=== PATIENT | female | born 1980 | race Caucasian/White ===

== ENCOUNTER 2018-12-29 19:25 | Inpatient (IN) | payer OTHER ==
[2018-12-29] MEDS: ELECTROLYTE-148 SOLN 1,000 ML IV SCH (20:05)
[2018-12-29 20:34] LABS: BASO % 0.2 % (0-2.0); HEMATOCRIT 32.3 % (32.4-45.2); LYMPH % 19.2 % (8-40); MCH 29.5 pg (25.7-33.7); MCHC 33.9 g/dl (32.0-36.0); MEAN CELL VOLUME 87.2 fl (80-96); MEAN PLT VOLUME 7.4 fl (7.5-11.1); MONO % 6.7 % (3.8-10.2); NEUT % 72.9 % (42.8-82.8); PLATELET COUNT 261 K/MM3 (134-434); RBC 3.71 M/mm3 (3.60-5.2); WHITE BLOOD COUNT 11.5 K/mm3 (4.0-10.0)
--- NOTE | 2018-12-29 20:38 | HP ---
Past Medical History - Primary Care Physician PCP:: Alejandra Meza - Admission Chief Complaint: Rupture of membranes. Labor History of Present Illness: 37 yo EDC 12/29/18 EGA 40 week who SROM and labor +AFM no vaginal bleeding Plan Admit to [facility] History Source: Patient - Past Surgical History Hx Myomectomy: No Hx Transabdominal Cerclage: No - Smoking History Smoking history: Never smoked - Alcohol/Substance Use Hx Alcohol Use: No History of Substance Use: reports: None - Social History History of Recent Travel: No Home Medications - Allergies Allergies/Adverse Reactions: Allergies Allergy/AdvReac Type Severity Reaction Status Date / Time No Known Allergies Allergy Verified 12/26/18 18:04 - Home Medications Home Medications: Ambulatory Orders Vitamins (Sjr) - 1 tab PO DAILY 12/24/18 Physical Exam - Maternity Constitutional: Yes: Well Nourished, No Distress Lungs: Clear to auscultation - Abdominal Exam/OB Fundal Height: 40 Number of Fetuses: Single Presentation: Vertex Contractions: Yes Regularity: Regular Category: I - Vaginal Exam/OB Dilatation (cm): 2 cm Amniotic Fluid: Yes: Clear - Physical Exam Musculoskeletal: Yes: WNL Extremities: Yes: WNL Edema: No Hemorrhage Risk Assessment - Risk Factors Risk Score: 0 Risk Level: Low Risk Problem List - Problems (1) Labor established Code(s): [id number] - (2) Rupture of membranes with clear amniotic fluid Code(s): IZH0004 - Assessment/Plan Rupture of membranes Labor IUP @ 40 week Plan admit to
[2018-12-29] MEDS ORDERED: BUTORPHANOL TARTRATE 1 MG/ML VIAL IVPB ONE (20:45)
[2018-12-29] MEDS ORDERED: PROMETHAZINE HCL 25 MG/1 ML VIAL IVPUSH ONE (20:45)
[2018-12-29 20:48] VITALS: BMI 26.9
[2018-12-29 20:55] LABS: ANION GAP 9 MMOL/L (8-16); BLOOD UREA NITROGEN 8 mg/dL (7-18); CALCIUM 9.1 mg/dL (8.5-10.1); CHLORIDE 105 mmol/L (98-107); CO2 23 mmol/L (21-32); CREATININE 0.7 mg/dL (0.55-1.3); GLUCOSE,RANDOM 85 mg/dL (74-106); POTASSIUM 3.7 mmol/L (3.5-5.1); SODIUM 136 mmol/L (136-145)
[2018-12-29] MEDS ORDERED: PROMETHAZINE HCL 25 MG/1 ML VIAL ONE (20:55)
[2018-12-29] MEDS ORDERED: BUTORPHANOL TARTRATE 1 MG/ML VIAL ONE ×2 (20:55)
[2018-12-29 21:00] LABS: INR 0.91 (0.83-1.09); PROTHROMBIN TIME (PATIENT) 10.7 SEC (9.7-13.0)
[2018-12-29 21:03] LABS: ACTIVATED PTT 25.2 SECONDS (25.2-36.5)
[2018-12-29] MEDS ORDERED: LIDOCAINE HCL 1% PRESERVATIVE FREE - 30ML VIAL ONE (21:58)
[2018-12-29] MEDS ORDERED: OXYTOCIN 20 UNITS in 0.9% NS 20 UNIT/1,000 ML INFUS.BAG IV ONE (21:58)
[2018-12-30] MEDS: OXYTOCIN 20 UNITS in 0.9% NS 20 UNIT/1,000 ML INFUS.BAG IV SCH (00:45)
[2018-12-30] MEDS ORDERED: BISACODYL 10 MG SUPP.RECT RC PRN (01:00)
[2018-12-30] MEDS ORDERED: BENZOCAINE 20% 57 GM BOTTLE TP PRN (01:00)
[2018-12-30] MEDS ORDERED: WITCH HAZEL 50% (TUCKS) 40 PAD/JAR PAD TP PRN (01:00)
[2018-12-30] MEDS ORDERED: BENZOCAINE 28 GM HEMORRHOIDAL OINTMENT TP PRN (01:00)
[2018-12-30] MEDS ORDERED: METHYLERGONOVINE MALEATE 0.2 MG/1 ML AMP IM PRN (01:00)
--- NOTE | 2018-12-30 01:00 | PN ---
Delivery - Delivery Vaginal Delivery: Spontaneous Type of Anesthesia: Local Episiotomy/Laceration: Midline (500) EBL (cc): 500 (Nuchal Cord x2 ) Delivery, Single - Stages of Labor Placenta: Yes: Spontaneous - Condition of Infant Position: OA - [place] Feeding Plan Initial Plan: Exclusive throughout hospitalization
[2018-12-30] MEDS ORDERED: IBUPROFEN 600 MG TABLET (FP) PO ONE (01:55)
[2018-12-30] MEDS ORDERED: OXYTOCIN 20 UNITS in 0.9% NS 20 UNIT/1,000 ML INFUS.BAG IV ONE ×2 (01:55→03:27)
[2018-12-30] MEDS ORDERED: ACETAMINOPHEN 325 MG TABLET (FP) ONE (01:55)
[2018-12-30] MEDS: ACETAMINOPHEN 325 MG TABLET (FP) PO PRN ×6 (02:05→23:17)
[2018-12-30] MEDS: IBUPROFEN 600 MG TABLET (FP) PO PRN ×4 (02:05→23:18)
--- NOTE | 2018-12-30 03:05 | RAPID ---
Physical Examination Vital Signs: Vital Signs Temperature 98.1 F 12/29/18 22:00 Pulse Rate 95 H 12/29/18 22:00 Respiratory Rate 20 12/29/18 22:00 Blood Pressure 131/76 12/29/18 22:00 O2 Sat by Pulse Oximetry (%) Labs: CBC, BMP 12/29/18 20:00 12/29/18 20:00 Rapid Response - Rapid Response Assessment: Rapid response called at labor and delivery. Response team arrived. As per nursing, patient just gave about an hour ago, with estimated blood loss of 300cc. Patient was trying to go to the bathroom, but nurse noted patient was leaning on the sink. Patient said she was feeling weak, and nurse caught her and slowly laid her down to the floor. When team arrived, patient was being lifted from the floor to the bed. Patient reports feeling tired and weak. Blood noted on the sheets in the bathroom and in the bed. VS: BP 113/59, HR 96, O2 sat 96% General: awake, alert, oriented, weak-looking Lungs: clear to auscultation Heart: tachycardic, no murmurs Syncope likely 2/2 hypovolemia from acute blood loss Dr. Fried came and examined patient. BGM 131 IV fluid bolus EKG - sinus tachycardia, NSR, no ST-T wave changes CBC BMP Labs reviewed. Primary team notified.
[2018-12-30 03:33] LABS: BASO % 0.1 % (0-2.0); HEMATOCRIT 23.8 % (32.4-45.2); HEMOGLOBIN 7.9 GM/dL (10.7-15.3); LYMPH % 5.2 % (8-40); MEAN CELL VOLUME 87.9 fl (80-96); MEAN PLT VOLUME 7.2 fl (7.5-11.1); MONO % 5.5 % (3.8-10.2); NEUT % 89.2 % (42.8-82.8); PLATELET COUNT 258 K/MM3 (134-434); RBC 2.71 M/mm3 (3.60-5.2); RDW 14.9 % (11.6-15.6); WHITE BLOOD COUNT 29.4 K/mm3 (4.0-10.0)
[2018-12-30] MEDS ORDERED: SODIUM CHLORIDE 1,000 ML IV STA (03:34)
[2018-12-30 04:14] LABS: CREATININE 0.7 mg/dL (0.55-1.3)
[2018-12-30 04:20] LABS: PLATELET ESTIMATE ADEQUATE
[2018-12-30 04:30] LABS: ALBUMIN 2.1 g/dl (3.4-5.0); ALK PHOS 171 U/L (45-117); ANION GAP 10 MMOL/L (8-16); BILIRUBIN,TOTAL 0.4 mg/dL (0.2-1); BLOOD UREA NITROGEN 11 mg/dL (7-18); CALCIUM 7.4 mg/dL (8.5-10.1); CHLORIDE 107 mmol/L (98-107); CO2 19 mmol/L (21-32); GLUCOSE,RANDOM 135 mg/dL (74-106); POTASSIUM 3.8 mmol/L (3.5-5.1); SGOT/AST 20 U/L (15-37); SGPT/ALT 9 U/L (13-61); SODIUM 137 mmol/L (136-145); TOT PROT 4.7 g/dl (6.4-8.2)
[2018-12-30] MEDS ORDERED: TUBERCULIN PPD 5 TU/0.1ML SYRINGE (IN PATIENT USE ONLY) ID ONE (06:00)
[2018-12-30] MEDS: PRENATAL VITAMINS W/ FOLIC ACID TABLET (FP) PO SCH (09:14)
--- NOTE | 2018-12-30 09:14 | PN ---
Post Progress Note - Subjective Subjective: Pt doing better. Had issue of syncope overnight, rapid response called. Feeling better. Ate breakfast. OOB to bathroom. +Void. VB much improved. Type of Delivery: Vital Signs: Vital Signs Temperature 98.6 F 12/30/18 07:40 Pulse Rate 108 H 12/30/18 07:40 Respiratory Rate 20 12/30/18 07:40 Blood Pressure 125/80 12/30/18 07:40 O2 Sat by Pulse Oximetry (%) 100 12/30/18 04:30 Uterus: Yes: Fundus Firm Abdomen/GI: Yes: Abdomen soft Lochia: Yes: Rubra Extremities: Yes: Edema (trace LE edema b/l) Perineum: Yes: Laceration Activity: Ambulating - Labs Labs: CBC WBC 29.4 K/mm3 (4.0-10.0) H 12/30/18 03:07 RBC 2.71 M/mm3 (3.60-5.2) L 12/30/18 03:07 Hgb 7.9 GM/dL (10.7-15.3) L 12/30/18 03:07 Hct 23.8 % (32.4-45.2) L D 12/30/18 03:07 MCV 87.9 fl (80-96) 12/30/18 03:07 MCH 29.0 pg (25.7-33.7) 12/30/18 03:07 MCHC 33.0 g/dl (32.0-36.0) 12/30/18 03:07 RDW 14.9 % (11.6-15.6) 12/30/18 03:07 Plt Count 258 K/MM3 (134-434) 12/30/18 03:07 MPV 7.2 fl (7.5-11.1) L 12/30/18 03:07 Absolute Neuts (auto) 26.3 K/mm3 (1.5-8.0) H 12/30/18 03:07 Total Counted 100 12/30/18 03:07 Neutrophils % 89.2 % (42.8-82.8) H D 12/30/18 03:07 Neutrophils % (Manual) 88.0 % (42.8-82.8) H 12/30/18 03:07 Band Neutrophils % 3.0 % (0-10) 12/30/18 03:07 Lymphocytes % 5.2 % (8-40) L D 12/30/18 03:07 Lymphocytes % (Manual) 6.0 % (8-40) L 12/30/18 03:07 Monocytes % 5.5 % (3.8-10.2) 12/30/18 03:07 Monocytes % (Manual) 3 % (3.8-10.2) L 12/30/18 03:07 Eosinophils % 0.0 % (0-4.5) D 12/30/18 03:07 Basophils % 0.1 % (0-2.0) 12/30/18 03:07 Nucleated RBC % 0 % (0-0) 12/30/18 03:07 Platelet Estimate Adequate 12/30/18 03:07 Platelet Comment No clumping noted 12/30/18 03:07 Platelet Comment No clotting detected 12/30/18 03:07 Problem List - Problems (1) (vaginal after ) Code(s): O34.219 - MATERNAL CARE FOR UNSP TYPE SCAR FROM PREVIOUS DEL (2) hemorrhage Code(s): O72.1 - OTHER IMMEDIATE HEMORRHAGE (3) Leukocytosis Code(s): D72.829 - ELEVATED WHITE BLOOD CELL COUNT, UNSPECIFIED Assessment/Plan regular diet repeat CBC this afternoon due to leukocytosis and PPH ambulation with assistance monitor VB
--- NOTE | 2018-12-30 10:18 | EKG ---
Test Reason : Blood Pressure : / mmHG Vent. Rate : 104 BPM Atrial Rate : 104 BPM P-R Int : 140 ms QRS Dur : 086 ms QT Int : 344 ms P-R-T Axes : 035 042 034 degrees QTc Int : 452 ms SINUS TACHYCARDIA NO PREVIOUS ECGS AVAILABLE Confirmed by MICHAEL PETERSON MD ([id number]) on 12/30/2018 10:17:32 AM Referred By: Confirmed By:MICHAEL PETERSON MD
[2018-12-30 17:32] LABS: EOS % 0.1 % (0-4.5); LYMPH % 11.9 % (8-40); MCHC 32.8 g/dl (32.0-36.0); MEAN CELL VOLUME 88.5 fl (80-96); MEAN PLT VOLUME 7.4 fl (7.5-11.1); MONO % 6.4 % (3.8-10.2); NEUT % 81.6 % (42.8-82.8); PLATELET COUNT 204 K/MM3 (134-434); RBC 1.92 M/mm3 (3.60-5.2); RDW 15.3 % (11.6-15.6); WHITE BLOOD COUNT 17.6 K/mm3 (4.0-10.0)
[2018-12-30 17:43] LABS: HEMOGLOBIN 5.6 GM/dL (10.7-15.3)
--- NOTE | 2018-12-30 17:51 | PN ---
Progress Note (short form) - Note Progress Note: Called due to HBG of 5 will transfuse 2 pack units rbc order sent consent from patient obtained Problem List - Problems (1) Rupture of membranes with clear amniotic fluid Code(s): BZW2132 - (2) Anemia complicating puerperium Code(s): O99.03 - ANEMIA COMPLICATING THE PUERPERIUM
[2018-12-30] MEDS: ELECTROLYTE-148 SOLN 1,000 ML IV SCH (22:41)
[2018-12-31] MEDS: ACETAMINOPHEN 325 MG TABLET (FP) PO PRN ×4 (05:16→18:55)
[2018-12-31] MEDS: IBUPROFEN 600 MG TABLET (FP) PO PRN ×4 (05:16→18:56)
--- NOTE | 2018-12-31 05:51 | PN ---
Progress Note (SOAP) - Subjective Chief Complaint: Doing better SP transfusion x 2 wk hemorrhage after Pt with severe headache bandlike 5-7/10 No hx of migraines - Current Medications Current Medications: Active Medications Acetaminophen (Tylenol -) 650 mg PO Q3H PRN PRN Reason: PAIN LEVEL 1-5 Last Admin: 12/31/18 05:16 Dose: 650 mg Benzocaine (Americaine 20% [place] -) 1 spray TP PRN PRN PRN Reason: PAIN Benzocaine (Americaine Ointment -) 1 applic TP PRN PRN PRN Reason: PAIN Bisacodyl (Dulcolax Suppository -) 10 mg RC PRN PRN PRN Reason: CONSTIPATION Oxytocin/Sodium Chloride (Normal Saline+20 Units Oxytocin -) 20 unit in 1,000 mls @ 125 mls/hr IV ASDIR [facility] [place] Last Admin: 12/30/18 00:45 Dose: 125 mls/hr Ibuprofen (Motrin -) 600 mg PO Q4H PRN PRN Reason: PAIN LEVEL 6-10 Last Admin: 12/31/18 05:16 Dose: 600 mg Methylergonovine Maleate (Methergine Injection -) 0.2 mg IM Q4H PRN PRN Reason: EXCESSIVE BLEEDING (L&D) Multivit/Folic Acid/Iron ( Vitamins (Sjr) -) 1 tab PO DAILY [facility] [place] Last Admin: 12/30/18 09:14 Dose: 1 tab Senna/Docusate Sodium (Pericolace -) 2 tablet PO HS PRN PRN Reason: CONSTIPATION Witch Jayla/Glycerin (Tucks Pads -) 1 pad TP PRN PRN PRN Reason: PAIN - Objective Vital Signs: Vital Signs Temperature 98.4 F 12/30/18 22:00 Pulse Rate 119 H 12/30/18 22:00 Respiratory Rate 18 12/30/18 22:00 Blood Pressure 114/73 12/30/18 22:00 O2 Sat by Pulse Oximetry (%) 100 12/30/18 04:30 Constitutional: Yes: Well Nourished, No Distress Neck: Yes: WNL Respiratory: Yes: WNL, Regular Gastrointestinal: Yes: WNL Genitourinary: Yes: WNL ....Post : Yes: Uterus firm, Uterus non-tender Musculoskeletal: Yes: WNL Extremities: Yes: WNL Edema: Yes Integumentary: Yes: WNL Neurological: Yes: WNL, Alert, Oriented Psychiatric: Yes: WNL, Alert, Oriented Labs Lab Results: CBC, BMP 12/30/18 16:30 12/30/18 03:07 Problem List - Problems (1) Rupture of membranes with clear amniotic fluid (2) Anemia complicating puerperium Code(s): O99.03 - ANEMIA COMPLICATING THE PUERPERIUM (3) (vaginal after ) Code(s): O34.219 - MATERNAL CARE FOR UNSP TYPE SCAR FROM PREVIOUS DEL (4) hemorrhage of vagina Code(s): O72.1 - OTHER IMMEDIATE HEMORRHAGE (5) Headache Code(s): R51 - HEADACHE Qualifiers: Headache chronicity pattern: acute headache Assessment/Plan SP hemorrhage sp blood transfusion anemia headache Plan ck CBC tylenol Call neurology if STEVENS continues
[2018-12-31] MEDS: OXYTOCIN 20 UNITS in 0.9% NS 20 UNIT/1,000 ML INFUS.BAG IV SCH (06:35)
[2018-12-31 09:56] LABS: BASO % 0.1 % (0-2.0); EOS % 0.5 % (0-4.5); HEMATOCRIT 20.6 % (32.4-45.2); LYMPH % 13.6 % (8-40); MCH 30.1 pg (25.7-33.7); MCHC 33.7 g/dl (32.0-36.0); MEAN CELL VOLUME 89.4 fl (80-96); MEAN PLT VOLUME 7.2 fl (7.5-11.1); MONO % 6.1 % (3.8-10.2); NEUT % 79.7 % (42.8-82.8); PLATELET COUNT 192 K/MM3 (134-434); RBC 2.31 M/mm3 (3.60-5.2); RDW 14.3 % (11.6-15.6); WHITE BLOOD COUNT 15.9 K/mm3 (4.0-10.0)
[2018-12-31 09:59] LABS: HEMOGLOBIN 6.9 GM/dL (10.7-15.3)
[2018-12-31] MEDS: PRENATAL VITAMINS W/ FOLIC ACID TABLET (FP) PO SCH (10:46)
[2018-12-31] MEDS ORDERED: SENNOSIDES/DOCUSATE COMBO (SENNA PLUS) TABLET (UD) PO PRN (22:00)
[2019-01-01] MEDS: ACETAMINOPHEN 325 MG TABLET (FP) PO PRN ×4 (02:10→19:43)
[2019-01-01] MEDS: IBUPROFEN 600 MG TABLET (FP) PO PRN ×4 (02:11→19:42)
[2019-01-01 07:34] LABS: BASO % 0.2 % (0-2.0); HEMATOCRIT 27.3 % (32.4-45.2); HEMOGLOBIN 9.3 GM/dL (10.7-15.3); MCH 29.6 pg (25.7-33.7); MCHC 34.1 g/dl (32.0-36.0); MEAN CELL VOLUME 86.8 fl (80-96); MEAN PLT VOLUME 6.7 fl (7.5-11.1); MONO % 5.3 % (3.8-10.2); NEUT % 74.5 % (42.8-82.8); PLATELET COUNT 226 K/MM3 (134-434); RBC 3.15 M/mm3 (3.60-5.2); RDW 15.6 % (11.6-15.6)
--- NOTE | 2019-01-01 08:08 | PN ---
Progress Note (SOAP) - Subjective Chief Complaint: Pt with severe headache not going away - Current Medications Current Medications: Active Medications Acetaminophen (Tylenol -) 650 mg PO Q3H PRN PRN Reason: PAIN LEVEL 1-5 Last Admin: 01/01/19 07:29 Dose: 650 mg Benzocaine (Americaine 20% [place] -) 1 spray TP PRN PRN PRN Reason: PAIN Last Admin: 12/31/18 07:58 Dose: 1 spray Benzocaine (Americaine Ointment -) 1 applic TP PRN PRN PRN Reason: PAIN Bisacodyl (Dulcolax Suppository -) 10 mg RC PRN PRN PRN Reason: CONSTIPATION Ibuprofen (Motrin -) 600 mg PO Q4H PRN PRN Reason: PAIN LEVEL 6-10 Last Admin: 01/01/19 07:29 Dose: 600 mg Methylergonovine Maleate (Methergine Injection -) 0.2 mg IM Q4H PRN PRN Reason: EXCESSIVE BLEEDING (L&D) Multivit/Folic Acid/Iron ( Vitamins (Sjr) -) 1 tab PO DAILY [facility] Last Admin: 12/31/18 10:46 Dose: 1 tab Senna/Docusate Sodium (Pericolace -) 2 tablet PO HS PRN PRN Reason: CONSTIPATION Witch Jayla/Glycerin (Tucks Pads -) 1 pad TP PRN PRN PRN Reason: PAIN Last Admin: 12/31/18 07:57 Dose: 1 pad - Objective Vital Signs: Vital Signs Temperature 97.0 F L 01/01/19 02:17 Pulse Rate 97 H 01/01/19 02:17 Respiratory Rate 20 01/01/19 02:17 Blood Pressure 126/73 01/01/19 02:17 O2 Sat by Pulse Oximetry (%) 100 12/30/18 04:30 Constitutional: Yes: Well Nourished, Moderate Distress Respiratory: Yes: WNL, Regular Gastrointestinal: Yes: WNL, Soft ....Post : Yes: Uterus firm, Uterus non-tender Breast(s): Yes: WNL Musculoskeletal: Yes: WNL Extremities: Yes: WNL Peripheral Pulses WNL: No Edema: Yes Integumentary: Yes: WNL Neurological: Yes: WNL, Alert, Oriented, Other (headache) Labs Lab Results: CBC, BMP 01/01/19 07:15 12/30/18 03:07 Problem List - Problems (1) Rupture of membranes with clear amniotic fluid (2) Anemia complicating puerperium Code(s): O99.03 - ANEMIA COMPLICATING THE PUERPERIUM (3) (vaginal after ) Code(s): O34.219 - MATERNAL CARE FOR UNSP TYPE SCAR FROM PREVIOUS DEL (4) Headache Code(s): R51 - HEADACHE Qualifiers: Headache chronicity pattern: acute headache Assessment/Plan SP sp transfusion anemia Severe Headache Plan will order CT Scan of head tylenol neurology consult called
[2019-01-01] MEDS ORDERED: MAGNESIUM 1GM/D5W - 1 GM/100 ML IVPB IVPB ONE (08:30)
[2019-01-01] MEDS: PRENATAL VITAMINS W/ FOLIC ACID TABLET (FP) PO SCH (09:24)
--- NOTE | 2019-01-01 09:38 | CON.NEURO ---
Consult Consult Specialty:: neuro Reason for Consultation:: HEADACHE - History of Present Illness History of Present Illness: 37 yo EDC 12/29/18 EGA 40 week who SROM and labor +AFM; no vaginal bleeding. Pt has had 5th child delivered via NVD 3 days back , which complicated w vaginal bleed ; started having STEVENS post , no intrathecal injection ; has received blood tx which immediately afterward her STEVENS worsens - now her STEVENS has improved w NSAID; pain level 5/10 ; STEVENS describes throbbing band likd , all over her head , worsens w moving , bending ; no photo or phonophobia ; no h/o headache . - History Source History Provided By: Patient Limitations to Obtaining History: No Limitations - Alcohol/Substance Use Hx Alcohol Use: No History of Substance Use: reports: None - Smoking History Smoking history: Never smoked Have you smoked in the past 12 months: No - Social History History of Recent Travel: No Home Medications - Allergies Allergies/Adverse Reactions: Allergies Allergy/AdvReac Type Severity Reaction Status Date / Time No Known Allergies Allergy Verified 12/29/18 22:53 - Home Medications Home Medications: Ambulatory Orders Vitamins (Sjr) - 1 tab PO DAILY 12/24/18 Ferrous Sulfate [Feosol] 325 mg PO BID #60 tablet 12/31/18 Review of Systems - Review of Systems Constitutional: reports: No Symptoms (All 14 organs reviewed and -ve beside HPI. ) Physical Exam-Neuro Vital Signs: Vital Signs Temperature 97.0 F L 01/01/19 02:17 Pulse Rate 97 H 01/01/19 02:17 Respiratory Rate 20 01/01/19 02:17 Blood Pressure 126/73 01/01/19 02:17 O2 Sat by Pulse Oximetry (%) 100 12/30/18 04:30 Constitutional: Yes: Well Nourished, No Distress Neck: Yes: Supple Cardiovascular: Yes: Regular Rate and Rhythm Respiratory: Yes: CTA Bilaterally Musculoskeletal: Yes: WNL Edema: No Psychiatric: Yes: WNL, Alert, Oriented Labs: CBC, BMP 01/01/19 07:15 12/30/18 03:07 INR, PTT INR 0.91 (0.83-1.09) 12/29/18 20:00 - Neuro Exam Level Of Consciousness: Yes: Oriented to Person, Oriented to Place, Oriented to Time Eyes: Yes: PERRLA Speech: WNL Cranial Nerves II-XII Intact: Yes Gag: Present DTR's: 2+ Left Bicep, 2+ Right Bicep, 2+ Left Tricep, 2+ Right Tricep, 2+ Left Brachioradialis, 2+ Right Brachioradialis, 2+ Left Achilles, 2+ Right Achilles Babinski: Absent Response to light touch: Normal Response to pain prick: Normal Response to temperature: Normal Response to vibration: Normal Coordination: Normal: Finger to Nose, Heel to Vazquez Motor Strength: 5/5: Left Arm, Right Arm, Left Leg, Right Leg Gait: Normal Problem List - Problems (1) Headache Code(s): R51 - HEADACHE Qualifiers: Headache chronicity pattern: acute headache (2) hemorrhage Code(s): O72.1 - OTHER IMMEDIATE HEMORRHAGE (3) Rupture of membranes with clear amniotic fluid Code(s): ZYP8260 - (4) Flank pain Code(s): R10.9 - UNSPECIFIED ABDOMINAL PAIN Assessment/Plan 38 y/o F , has had her 5th baby via NVD , complicated w VB and has received blood tx, STEVENS started post 3 days ago ; STEVENS triggers by bending , and changing position , no intrathecal injection ;neuro exam no focal deficit. STEVENS , need to exclude SDH vs sinus thrombosis . I suggest ; CTH wo stat MRA head MRV HEAD MRI brain wo Neurocheck q 4 hours Depakote 500 mg iv x1 dose if continues having STEVENS IVF Check homocysteine, factor 5, lupus anticoagulant, thrombin , fibrinogen Health maintenance per primary team. Thank you. Jared Mesa MD [phone]
[2019-01-02] MEDS: IBUPROFEN 600 MG TABLET (FP) PO PRN ×4 (02:04→17:14)
[2019-01-02] MEDS: ACETAMINOPHEN 325 MG TABLET (FP) PO PRN ×4 (02:05→17:13)
[2019-01-02 08:11] VITALS: BP 107/59; PULSE 94; TEMP 98.2
--- NOTE | 2019-01-02 08:27 | PN ---
Progress Note (short form) - Note Progress Note: 37 yo EDC 12/29/18 EGA 40 week who SROM and labor +AFM; no vaginal bleeding. Pt has had 5th child delivered via NVD 3 days back , which complicated w vaginal bleed ; started having STEVENS post , no intrathecal injection ; has received blood tx which immediately afterward her STEVENS worsens - now her STEVENS has improved w NSAID; pain level 5/10 ; STEVENS describes throbbing band likd , all over her head , worsens w moving , bending ; no photo or phonophobia ; no h/o headache . FU : STEVENS -now better , though had last night and this AM, NSAIds and Tylenol help no HX of migraine no HX epidural CT HD , mild enlarged pituitary otherwise no pathology - History Source History Provided By: Patient Limitations to Obtaining History: No Limitations - Alcohol/Substance Use Hx Alcohol Use: No History of Substance Use: reports: None - Smoking History Smoking history: Never smoked Have you smoked in the past 12 months: No - Social History History of Recent Travel: No Home Medications - Allergies Allergies/Adverse Reactions: Allergies Allergy/AdvReac Type Severity Reaction Status Date / Time No Known Allergies Allergy Verified 12/29/18 22:53 - Home Medications Home Medications: Ambulatory Orders Vitamins (Sjr) - 1 tab PO DAILY 12/24/18 Ferrous Sulfate [Feosol] 325 mg PO BID #60 tablet 12/31/18 Review of Systems - Review of Systems Constitutional: reports: No Symptoms (All 14 organs reviewed and -ve beside HPI. ) Physical Exam-Neuro Vital Signs: Vital Signs Temperature 98.2 F 01/02/19 08:10 Pulse Rate 94 H 01/02/19 08:10 Respiratory Rate 20 01/02/19 08:10 Blood Pressure 107/59 L 01/02/19 08:10 O2 Sat by Pulse Oximetry (%) 100 12/30/18 04:30 Constitutional: Yes: Well Nourished, No Distress Neck: Yes: Supple Cardiovascular: Yes: Regular Rate and Rhythm Respiratory: Yes: CTA Bilaterally Musculoskeletal: Yes: WNL Edema: No Psychiatric: Yes: WNL, Alert, Oriented Labs: CBC, BMP 01/01/19 07:15 12/30/18 03:07 INR, PTT INR 0.91 (0.83-1.09) 12/29/18 20:00 - Neuro Exam Level Of Consciousness: Yes: Oriented to Person, Oriented to Place, Oriented to Time Eyes: Yes: PERRLA Speech: WNL Cranial Nerves II-XII Intact: Yes Gag: Present DTR's: 2+ Left Bicep, 2+ Right Bicep, 2+ Left Tricep, 2+ Right Tricep, 2+ Left Brachioradialis, 2+ Right Brachioradialis, 2+ Left Achilles, 2+ Right Achilles Babinski: Absent Response to light touch: Normal Response to pain prick: Normal Response to temperature: Normal Response to vibration: Normal Coordination: Normal: Finger to Nose, Heel to Vazquez Motor Strength: 5/5: Left Arm, Right Arm, Left Leg, Right Leg Gait: Normal Problem List - Problems (1) Headache Code(s): R51 - HEADACHE Qualifiers: Headache chronicity pattern: acute headache (2) hemorrhage Code(s): O72.1 - OTHER IMMEDIATE HEMORRHAGE (3) Rupture of membranes with clear amniotic fluid Code(s): NYV3060 - (4) Flank pain Code(s): R10.9 - UNSPECIFIED ABDOMINAL PAIN Assessment/Plan 38 y/o F , has had her 5th baby via NVD , complicated w VB and has received blood tx, STEVENS started post 3 days ago ; STEVENS triggers by bending , and changing position , no intrathecal injection ;neuro exam no focal deficit. no hx of epidural, no signs of infection STEVENS , need to exclude SDH vs sinus thrombosis . CT HD (-) FU MRI /MRA today, if (-) can be FU outpt NSAIDs for now DR URENA [phone]
[2019-01-02] MEDS: PRENATAL VITAMINS W/ FOLIC ACID TABLET (FP) PO SCH (09:11)
[2019-01-03 19:16] LABS: HOMOCYSTINE-PLASMA OR SERUM 6.5 umol/L (0.0-15.0)
[2019-01-04 11:27] LABS: THROMBIN TIME 17.7 sec (0.0-23.0)
[2019-01-04 13:23] LABS: DRVVT - 30.7 sec (0.0-47.0)
== END 2019-01-02 17:30 | disposition home or self-care (01) | DRG 560 ==
LOC: JDEL 19:25 → JLDR 19:40 → J3W 12-30 05:00
PROVIDERS: ADMIT Obstetrics & Gynecology; ATTEND Obstetrics & Gynecology
PROC: 0W8NXZZ Division of Female Perineum, External Approach (ICD-10-PCS; principal; 2018-12-30)
PROC: 10E0XZZ Delivery of Products of Conception, External Approach (ICD-10-PCS; 2018-12-30)
PROC: 30233N1 Transfusion of Nonautologous Red Blood Cells into Peripheral Vein, Percutaneous Approach (ICD-10-PCS; 2018-12-30)
DX: O48.0 Post-term pregnancy (principal); O99.02 Anemia complicating childbirth; O72.1 Other immediate postpartum hemorrhage; O90.89 Other complications of the puerperium, not elsewhere classified; R51 Headache; R10.9 Unspecified abdominal pain; Z3A.40 40 weeks gestation of pregnancy; Z37.0 Single live birth
CPT/HCPCS: 36415; 36430; 59025; 59409; 70450-TC; 70544-TC; 70551-TC; 80048; 80053; 81241; 82962; 83090; 85025; 85384; 85610; 85613; 85670; 85730; 85732; 86593; 86850; 86900; 86901; 86922; 93005; 93010; P9038; P9058

== ENCOUNTER 2019-02-27 05:36 | Day surgery (SDC) | payer OTHER ==
[2019-02-21 17:08] VITALS: BMI 26.2
[~2019-02-27 05:36] MED LIST: BUPIVACAINE HCL/PF (5 MG/ML) 30 ML VIAL IJ ONE
--- NOTE | 2019-02-27 07:05 | HP ---
History & Physical Update - History History: No Change - Physical Physical: No Change - Assessment Assessment: No Change - Plan Plan: No Change (No nchange in HP)
[2019-02-27] MEDS ORDERED: IBUPROFEN 400 MG TABLET (FP) PO PRN (07:06)
[2019-02-27] MEDS ORDERED: LACTATED RINGERS SOLUTION 1,000 ML IV SCH (07:15)
[2019-02-27] MEDS ORDERED: BUPIVACAINE HCL/PF 0.5% (5MG/ML) 10 ML VIAL ONE (07:36)
[2019-02-27] MEDS ORDERED: KETOROLAC TROMETHAMINE 30 MG/1 ML VIAL ONE (07:54)
[2019-02-27] MEDS ORDERED: LIDOCAINE HCL/PF 2% SDV 5ML VIAL ONE (07:54)
[2019-02-27] MEDS ORDERED: PROPOFOL 20 ML ONE ×2 (07:55)
[2019-02-27] MEDS ORDERED: ROCURONIUM BROMIDE 50 MG/5 ML VIAL ONE (07:55)
[2019-02-27] MEDS ORDERED: MIDAZOLAM HCL 2 MG/2 ML SINGLE DOSE VIAL ONE (07:55)
[2019-02-27] MEDS ORDERED: DEXAMETHASONE SOD PHOSPHATE 4 MG/1 ML VIAL ONE (08:31)
[2019-02-27] MEDS ORDERED: GLYCOPYRROLATE 0.2 MG/1 ML VIAL ONE (09:08)
[2019-02-27] MEDS ORDERED: NEOSTIGMINE METHYLSULFATE 0.5 MG/ML - 10 ML MDV ONE (09:08)
[2019-02-27] MEDS ORDERED: BUPIVACAINE HCL/PF (5 MG/ML) 30 ML VIAL IJ ONE (09:12)
[2019-02-27] MEDS ORDERED: ONDANSETRON 4 MG/2 ML VIAL IVPUSH PRN (09:35)
[2019-02-27] MEDS ORDERED: oxyCODONE HCL 5 MG TABLET PO PRN (09:35)
--- NOTE | 2019-02-27 09:47 | OP ---
Operative Note - Note: Operative Date: 02/27/19 Pre-Operative Diagnosis: Elective sterilization and perineal scar/mass Operation: Laprascopic bilateral salpingectomy, perineorrhaphy Post-Operative Diagnosis: Same as Pre-op Surgeon: Alejandra Meza Title One Reading Teacher: Duncan Kurzt Anesthesiologist/GLOBAL SECURITY ARCHITECT: Audelia Chang Anesthesia: General Specimens Removed: Bilateral fallopian tubes Estimated Blood Loss (mls): 5 Fluid Volume Replaced (mls): 600 Operative Report Dictated: Yes
--- NOTE | 2019-02-27 09:48 | SURG ---
Surgery Broadband Technician Note Broadband Technician: Duncan Kurtz PA-C Date of Service: 02/27/19 Diagnosis: Elective sterilization, perineal scar/mass Procedure: Laprascopic bilateral salpingectomy, perineorraphy I was present for the entirety of the operative procedure. For further detail, please refer to operative report. Visit type - Case Type Case Type: Scheduled - New patient This patient is new to me today: Yes Date on this admission: 02/27/19
[2019-02-27] MEDS ORDERED: ONDANSETRON 4 MG/2 ML VIAL ONE (11:18)
[2019-02-27 11:34] VITALS: TEMP 97.4
--- NOTE | 2019-02-27 13:06 | OP ---
DATE OF OPERATION: 02/27/2019 PREOPERATIVE DIAGNOSIS: Multiparity, voluntary sterilization. OPERATION: Laparoscopic bilateral salpingectomy and repair of perineum. POSTOPERATIVE DIAGNOSIS: Multiparity, voluntary sterilization, perineal lesion. SURGEON: David Meza MD COLLAR PADDER BLINDSTITCH: SEMAJ Ibrahim ANESTHESIA: General. ANESTHESIOLOGIST: Audelia Chang MD PROCEDURE: The patient was taken to the operating room and placed in dorsal lithotomy position, prepped and draped in the usual sterile fashion. A time-out was performed in accordance with hospital regulation. Attention was then drawn to the umbilicus where a 5-mm umbilical incision was made. Veress needle was inserted into the cavity. Approximately 3-4 L of CO2 was insufflated in the cavity. Veress needle was then removed, and a 5-mm trocar was then inserted. Laparoscope and camera attached. Visualization revealed uterus was attached to the anterior abdominal wall near the bladder. Tubes and ovaries were noted to be normal. Two trocars were placed in the left and right lower quadrant under direct visualization. Trocar were inserted. Grasper was then used to grasp with the right tube first, and a salpingectomy was performed on the right using LigaSure. Coagulating and cutting of the tube was done. The same procedure was repeated on the left side. Both tubes were removed and sent to Pathology. Hemostasis was achieved. All instruments were removed. Appendix was noted to be normal. Liver was noted to be normal. All instruments were then removed. Incisions were then closed using 4-0 Biosyn suture in subcuticular fashion. Attention was then turned to the perineum where perineal skin lesion was noted. Scalpel was then used to make a V incision both the vagina area and the perineal area, and that area was removed. Then 0 Biosyn suture was used to close the vagina and the perineum in a continuous subcuticular fashion. The wound was washed and dressed. The patient tolerated the procedure well. Estimated blood loss 5 mL. DAVID MEZA M.D. [id number]
[2019-02-27 14:18] VITALS: BP 105/65; PULSE 71
--- NOTE | 2019-02-28 18:10 | PATH ---
Surgical Pathology Report Patient Name: ALINA SALDIVAR [facility]. Rec. #: [id number] /Age/Gender: 1980 (Age: 38) / F Account: [id number] Location: [facility] SURGICAL Taken: 02/27/2019 Received: 02/27/2019 Reported: 02/28/2019 Physicians: Alejandra Meza M.D. Specimen(s) Received A: RIGHT FALLOPIAN TUBE B: LEFT FALLOPIAN TUBE C: PORTION OF PERINEUM AND PART OF VAGINA Clinical History Voluntary sterilization, laparoscopic bilateral salpingectomy Final Diagnosis A. RIGHT FALLOPIAN TUBE, RESECTION: PORTION OF FALLOPIAN TUBE WITH PARATUBAL CYSTS. COMPLETE CROSS SECTION OF LUMEN IDENTIFIED. B. LEFT FALLOPIAN TUBE, RESECTION: COMPLETE CROSS SECTION OF LUMEN IDENTIFIED. C. PORTION OF PERINEUM AND PART OF VAGINA, EXCISION: SEGMENT OF SQUAMOUS MUCOSA SHOWING FOCAL CHRONIC INFLAMMATION WITH HISTIOCYTIC INCLUDING FOREIGN BODY TYPE MULTINUCLEATED GIANT CELL REACTION IN THE DERMIS. Electronically Signed Tate Price M.D. Gross Description A. Received in formalin labeled "right fallopian tube," are 2 portions of a fallopian tube measuring 2.0 and 4.5 cm in length. The longer portion displays attached fimbria as well as 2 attached paratubal cysts measuring 1.1 and 1.7 cm in greatest dimension. Sectioning of the fallopian tube reveals an unremarkable lumen. Waistline Joiner Lockstitch sections are submitted in 3 cassettes as follows: 1-fimbria; 2-cross sections of fallopian tube with attached paratubal cysts; 3-additional cross sections of fallopian tube. B. Received in formalin labeled "left fallopian tube," is a 6.5 cm length of fimbriated fallopian tube. The outer surface is elias purple and smooth. Sectioning reveals unremarkable lumen. Waistline Joiner Lockstitch sections are submitted in 2 cassettes as follows: 1-fimbria; 2-cross sections of fallopian tube. C. Received in formalin labeled "portion of perineum and part of vagina," is a 1.1 x 0.7 cm reeves, elliptical portion of skin with attached mucosal tissue. The margin is inked green and the specimen is serially sectioned. The specimen is entirely submitted in one cassette. /02/27/2019 saudi02/27/2019
== END 2019-02-27 14:23 | disposition home or self-care (01) ==
LOC: JASU-SURG 05:36
PROVIDERS: ATTEND Obstetrics & Gynecology
PROC: 0HB9XZZ Excision of Perineum Skin, External Approach (ICD-10-PCS; 2019-02-27)
PROC: 0U574ZZ Destruction of Bilateral Fallopian Tubes, Percutaneous Endoscopic Approach (ICD-10-PCS; principal; 2019-02-27 08:00)
DX: Z30.2 Encounter for sterilization (principal); L98.8 Other specified disorders of the skin and subcutaneous tissue
CPT/HCPCS: 36415; 84703; 86850; 86900; 86901; 88302-TC; 88305-TC; 94760